=== PATIENT | female | born 1985 ===

== ENCOUNTER 2017-02-28 14:07 | Emergency (ER) | payer MEDICAID, OTHER ==
[2017-02-28 14:08] VITALS: BMI 31.0
[2017-02-28 14:50] VITALS: O2SAT 99
--- NOTE | 2017-02-28 15:09 | C.PDOC ---
History Of Present Illness 31 y.o female c/o myalgias, right ear and throat pain, subjective fever, decreased appetite and cough with yellowish sputum x 3 days. no recent travel. pt tried theraflu with no relief. both children sick as well. Time Seen by Provider: 02/28/17 14:33 Chief Complaint (Nursing): Flu-like Symptoms History Per: Patient History/Exam Limitations: no limitations Onset/Duration Of Symptoms: Days (3) Current Symptoms Are (Timing): Still Present Associated Symptoms: Fever, Cough, Sputum (yellow ) Ear Symptoms: Left: None, Right: Ear Pain Recent travel outside of the [place]: No Additional History Per: Patient Past Medical History Reviewed: Historical Data, Nursing Documentation, Vital Signs Vital Signs: Last Vital Signs Temp 98.0 F 02/28/17 17:40 Pulse 100 H 02/28/17 17:40 Resp 16 02/28/17 17:40 BP 111/73 02/28/17 17:40 Pulse Ox 99 03/01/17 18:46 - Medical History PMH: No Chronic Diseases Surgical History: Cholecystectomy Family History: States: Unknown Family Hx - Social History Hx Tobacco Use: Yes Hx Alcohol Use: Yes Hx Substance Use: No - Immunization History Hx Tetanus Toxoid Vaccination: Yes Hx Influenza Vaccination: No Hx Pneumococcal Vaccination: (unk) Review Of Systems Constitutional: Positive for: Fever, Chills, Other (decreased appetite ) ENT: Positive for: Ear Pain (right), Throat Pain Cardiovascular: Negative for: Chest Pain, Palpitations Respiratory: Positive for: Cough, Pleuritic Pain, Sputum (yellow ). Negative for: Shortness of Breath Gastrointestinal: Positive for: Diarrhea. Negative for: Vomiting, Abdominal Pain Skin: Negative for: Rash Neurological: Negative for: Weakness, Numbness Physical Exam - Physical Exam Appears: Non-toxic, Other (very uncomfortable ) Skin: Warm, Dry Head: Atraumatic, Normacephalic Eye(s): bilateral: Normal Inspection Ear(s): Left: Normal, Right: TM Erythema (bright red) Nose: No Discharge Oral Mucosa: Moist Throat: Erythema, No Exudate Neck: Normal ROM, Supple Lymphatic: Adenopathy (cervical right more than left) Chest: Symmetrical, No Deformity, No Tenderness Cardiovascular: Rhythm Regular, No Murmur, Other (tachycardia noted ) Respiratory: No Decreased Breath Sounds, No Rales, No Rhonchi, No Wheezing Gastrointestinal/Abdominal: Bowel Sounds, Soft, No Tenderness, No Guarding, No Rebound Extremity: Normal ROM, Capillary Refill (less than 2 seconds ) Neurological/Psych: Oriented x3, Normal Speech, Normal Cognition Gait: Steady ED Course And Treatment O2 Sat by Pulse Oximetry: 99 (on RA) Pulse Ox Interpretation: Normal Medical Decision Making Medical Decision Making: pt feeling better, will d/c with amox, pmd f/u, nsaids for pain and fever Disposition Counseled Patient/Family Regarding: Studies Performed, Diagnosis, Need For Followup, Rx Given, Smoking Cessation - Disposition Referrals: [facility] at [facility] [Outside] Disposition: HOME/ ROUTINE Disposition Time: 17:53 Condition: IMPROVED Additional Instructions: Take ibuprofen for pain or fever. Gargle with warm salty water several tinmes a day, drink tea with honey and lemon. FOllow up in medical clinic in a few days. Increased rest. Take antiboitics until finished. Prescriptions: Amoxicillin 500 mg PO TID #21 tablet Ibuprofen [Motrin] 600 mg PO TID #30 tab Instructions: Otitis Media (ED), Upper Respiratory Infection (ED) Forms: [facility] (Lao), General Discharge Instructions - Clinical Impression Clinical Impression: Influenza-like illness, Otitis media - PA / OVERCOIL STEPPER / Resident Statement MD/DO has reviewed & agrees with the documentation as recorded. - Scribe Statement The provider has reviewed the documentation as recorded by the Scribe (Adrianne Adams) All medical record entries made by the Scribe were at my direction and personally dictated by me. I have reviewed the chart and agree that the record accurately reflects my personal performance of the history, physical exam, medical decision making, and the department course for this patient. I have also personally directed, reviewed, and agree with the discharge instructions and disposition.
[2017-02-28 17:41] VITALS: BP 111/73; PULSE 100; RESP 16; TEMP 98
== END 2017-02-28 18:28 | disposition home or self-care (01) ==
LOC: C.ER 14:07
DX: J11.1 Influenza due to unidentified influenza virus with other respiratory manifestations (principal); H66.90 Otitis media, unspecified, unspecified ear; Z87.891 Personal history of nicotine dependence

== ENCOUNTER 2017-05-25 19:34 | Emergency (ER) | payer MEDICAID ==
[2017-05-25 19:35] VITALS: BMI 31.0
[2017-05-25 19:44] VITALS: RESP 20; TEMP 98.3
[2017-05-25] MEDS ORDERED: Lidocaine 5% Patch TD STA (20:12)
[2017-05-25] MEDS ORDERED: Lidocaine 5% Patch TD ONE (20:23)
[2017-05-25 20:48] LABS: SQUAMOUS EPITHIAL 7 /hpf (0-5); URINE BILIRUBIN NEGATIVE (NEGATIVE); URINE BLOOD NEGATIVE (NEGATIVE); URINE CLARITY Hazy (Clear); URINE COLOR Straw (YELLOW); URINE GLUCOSE (UA) NORMAL (Normal); URINE LEUKOCYTE ESTERASE NEG Leu/uL (Negative); URINE PROTEIN NEGATIVE (NEGATIVE); URINE UROBILINOGEN NORMAL mg/dL (0.2-1.0)
[2017-05-25 21:06] VITALS: BP 130/78; PULSE 83; O2SAT 100
--- NOTE | 2017-05-25 21:18 | C.PDOC ---
History Of Present Illness 31 year old female presents to the emergency department with complaints of low back pain since yesterday. Pain was initially dull and aching, then today it worsened while doing laundry. She feels when picking up a basket the pain became exacerbated, and started radiating down the right posterior thigh and knee. No numbness, weakness, or urinary symptoms. Patient took Tylenol without relief. Time Seen by Provider: 05/25/17 19:49 Chief Complaint (Nursing): Back Pain History Per: Patient History/Exam Limitations: no limitations Onset/Duration Of Symptoms: Days (x2) Current Symptoms Are (Timing): Still Present Associated Symptoms: None Past Medical History Reviewed: Historical Data, Nursing Documentation, Vital Signs Vital Signs: Last Vital Signs Temp 98.3 F 05/25/17 19:41 Pulse 83 05/25/17 21:05 Resp 20 05/25/17 21:05 BP 130/78 05/25/17 21:05 Pulse Ox 100 05/25/17 21:24 - Medical History PMH: No Chronic Diseases Surgical History: Cholecystectomy, Family History: States: Unknown Family Hx - Social History Hx Tobacco Use: Yes Hx Alcohol Use: Yes Hx Substance Use: No - Immunization History Hx Tetanus Toxoid Vaccination: Yes Hx Influenza Vaccination: No Hx Pneumococcal Vaccination: No (unk) Review Of Systems Except As Marked, All Systems Reviewed And Found Negative. Constitutional: Negative for: Fever, Chills Genitourinary: Negative for: Dysuria, Frequency, Incontinence Musculoskeletal: Positive for: Back Pain Neurological: Negative for: Weakness, Numbness Physical Exam - Physical Exam Appears: Other (Uncomfortable) Skin: Warm, Dry, No Rash Head: Atraumatic, Normacephalic Eye(s): bilateral: Normal Inspection Oral Mucosa: Moist Neck: Normal ROM Chest: Symmetrical Cardiovascular: Rhythm Regular, No Murmur Respiratory: Normal Breath Sounds, No Rales, No Rhonchi, No Wheezing Gastrointestinal/Abdominal: Soft, No Tenderness, No Guarding Back: Paraspinal Tenderness (to the right paralumbar region), No Other ( swelling or bulging) Extremity: Bilateral: Atraumatic, Normal Color And Temperature, Normal ROM Neurological/Psych: Oriented x3, Normal Speech, No Other (focal deficits) ED Course And Treatment O2 Sat by Pulse Oximetry: 100 (RA) Pulse Ox Interpretation: Normal Medical Decision Making Medical Decision Making: Impression: Low back pain, rule out UTI Time: 20:11 Plan: --Urine preg --Urinalysis --Tylenol 975 mg PO --Toradol 60 mg IM --Lidoderm patch --Valium 5 mg PO --Reassessment Urinalysis reviewed, and is negative. Patient remains afebrile, awake, and alert in the ED. On reevaluation, patient reports improvement of pain and feels comfortable being discharged home. Provided with prescriptions for Cyclobenzaprine and Motrin. Advised to follow up with primary doctor. Disposition Counseled Patient/Family Regarding: Studies Performed, Diagnosis, Need For Followup, Rx Given - Disposition Referrals: Cj Arriaga D[facility] [[facility]] - Disposition: HOME/ ROUTINE Disposition Time: 20:59 Condition: IMPROVED Additional Instructions: You can apply heat to area Take Tylenol 500mg for any pain Take Ibuprofen as needed for pain every 6-8 hours, with food to not upset stomach Take Flexeril every 8 hours as needed for muscular pain and spasm, caution may cause drowsiness Prescriptions: Cyclobenzaprine [Cyclobenzaprine HCl] 10 mg PO TID #21 tab Ibuprofen [Motrin] 1 tab PO TID PRN #30 tab PRN Reason: Pain Instructions: Low Back Pain (DC) Forms: [facility] (Kiswahili) - POA Present On Arrival: None - Clinical Impression Clinical Impression: Sciatica - PA / CERTIFIED MEDICAL ASST / Resident Statement MD/DO has reviewed & agrees with the documentation as recorded. - Scribe Statement The provider has reviewed the documentation as recorded by the Scribe (Suki Funes) All medical record entries made by the Scribe were at my direction and personally dictated by me. I have reviewed the chart and agree that the record accurately reflects my personal performance of the history, physical exam, medical decision making, and the department course for this patient. I have also personally directed, reviewed, and agree with the discharge instructions and disposition.
== END 2017-05-25 21:06 | disposition home or self-care (01) ==
LOC: C.ER 19:34
DX: M54.30 Sciatica, unspecified side (principal)
CPT/HCPCS: 81001; 96372; 99284; J1885

== ENCOUNTER 2017-08-01 17:35 | Emergency (ER) | payer MEDICAID ==
[2017-08-01 17:35] VITALS: BMI 31.0
--- NOTE | 2017-08-01 18:57 | C.PDOC ---
History Of Present Illness 31yo female, presents to ED for evaluation of abdominal discomfort after she ate 3 pieces of strawberry shortcake yesterday. She reports she has generalized abdominal pain described as a cramp like sensation, bloating and a tight feeling in her abdomen. She also reports feeling constipated and was only able to pass small amounts of stool earlier today; she denies passing gas today and denies any nausea, or vomiting. She also denies any urinary symptoms but reports when providing sample in ER she reports urinating a small amount and felt some hesitancy. Her LMP was 1 week ago and was normal. She has no other medical complaints. Time Seen by Provider: 08/01/17 18:19 Chief Complaint (Nursing): Abdominal Pain History Per: Patient History/Exam Limitations: no limitations Onset/Duration Of Symptoms: Hrs Current Symptoms Are (Timing): Still Present Location Of Pain/Discomfort: Diffuse Quality Of Discomfort: Cramping, "Pain" Associated Symptoms: Constipation. denies: Nausea, Vomiting, Diarrhea, Urinary Symptoms Additional History Per: Patient Abnormal Vaginal Bleeding: No Past Medical History Reviewed: Historical Data, Nursing Documentation, Vital Signs Vital Signs: Last Vital Signs Temp 98.5 F 08/01/17 20:58 Pulse 82 08/01/17 20:58 Resp 20 08/01/17 20:58 BP 125/76 08/01/17 20:58 Pulse Ox 98 08/01/17 20:58 - Medical History PMH: No Chronic Diseases Surgical History: Cholecystectomy, Family History: States: No Known Family Hx, Unknown Family Hx - Social History Hx Tobacco Use: Yes Hx Alcohol Use: Yes Hx Substance Use: No - Immunization History Hx Tetanus Toxoid Vaccination: Yes Hx Influenza Vaccination: No Hx Pneumococcal Vaccination: No (unk) Review Of Systems Except As Marked, All Systems Reviewed And Found Negative. Constitutional: Negative for: Fever, Chills Gastrointestinal: Positive for: Abdominal Pain (cramping discomfort), Constipation, Other (bloating) Genitourinary: Positive for: Other (hesitancy). Negative for: Dysuria, Frequency Physical Exam - Physical Exam Appears: Non-toxic, No Acute Distress Skin: Normal Color, Warm, Dry Head: Atraumatic, Normacephalic Eye(s): bilateral: Normal Inspection Oral Mucosa: Moist Neck: Normal ROM, Supple Chest: Symmetrical Cardiovascular: Rhythm Regular Respiratory: Normal Breath Sounds Gastrointestinal/Abdominal: Bowel Sounds (non tympanitic), Soft, Tenderness ( diffuse tenderness to right and left abdomen), No Mass, No Guarding, No Rebound Back: Normal Inspection Extremity: Normal ROM, No Pedal Edema Neurological/Psych: Oriented x3 ED Course And Treatment - Laboratory Results Result Diagrams: 08/01/17 18:55 08/01/17 18:55 Lab Interpretation: No Acute Changes O2 Sat by Pulse Oximetry: 100 (RA) Pulse Ox Interpretation: Normal - Other Rad obstructive series X-Ray: Interpreted by Me Interpretation: Normal bowel gas pattern. No evidence of constipation. Progress Note: 8:00 Patient continues to c/o diffuse abdominal pain despite IM Bentyl. CT abdomen and pelvis ordered. Reevaluation Time: 21:50 Reassessment Condition: Improved (Patient told RN that she feels better after Morphine and does not want to wait for CT to be done. She removed her IV and walked out before speaking to me.) Medical Decision Making Medical Decision Making: Plan: -- Labs -- Bentyl 20mg IM -- Urinalysis -- XR Obstructive series Progress: Disposition - Disposition Disposition: ELOPEMENT - ER ONLY Disposition Time: 21:50 Condition: IMPROVED - Clinical Impression Clinical Impression: Abdominal pain - Scribe Statement The provider has reviewed the documentation as recorded by the Scribe (Coty Ayers) Provider Attestation: All medical record entries made by the Scribe were at my direction and personally dictated by me. I have reviewed the chart and agree that the record accurately reflects my personal performance of the history, physical exam, medical decision making, and the department course for this patient. I have also personally directed, reviewed, and agree with the discharge instructions and disposition.
[2017-08-01 19:06] LABS: HCG,QUALITATIVE URINE NEGATIVE (NEGATIVE)
[2017-08-01 19:08] LABS: BASO % 0.3 % (0.0-2.0); EOS # 0.1 K/uL (0.0-0.7); EOS % 0.8 % (0.0-4.0); HEMOGLOBIN 13.2 g/dL (11.0-16.0); LYMPH # 1.3 K/uL (1.0-4.3); LYMPH % 12.4 % (20.0-40.0); MEAN CELL VOLUME 89.4 fL (81.0-99.0); MEAN CORPUSCULAR HEMOGLOBIN 30.4 pg (27.0-31.0); MONO # 0.7 K/uL (0.0-0.8); MONO % 6.9 % (0.0-10.0); NEUT # 8.6 K/uL (1.8-7.0); NEUT % 79.6 % (50.0-75.0); RBC 4.35 Mil/uL (3.80-5.20); RED CELL DISTRIBUTION WIDTH 13.5 % (11.5-14.5); WHITE BLOOD COUNT 10.8 K/uL (4.8-10.8)
[2017-08-01 19:12] LABS: SQUAMOUS EPITHIAL 5 /hpf (0-5); URINE AMORPHOUS SEDIMENT OCC /ul (<OCC); URINE BACTERIA OCC (<OCC); URINE BILIRUBIN NEGATIVE (NEGATIVE); URINE BLOOD NEGATIVE (NEGATIVE); URINE CLARITY Hazy (Clear); URINE COLOR Yellow (YELLOW); URINE GLUCOSE (UA) NORMAL (Normal); URINE LEUKOCYTE ESTERASE TRACE Leu/uL (Negative); URINE PROTEIN NEGATIVE (NEGATIVE); URINE UROBILINOGEN NORMAL mg/dL (0.2-1.0)
[2017-08-01 19:17] LABS: ALB/GLOB RATIO 1.2 (1.0-2.1); ALBUMIN 3.6 g/dL (3.5-5.0); ALT/SGPT 72 U/L (9-52); AST/SGOT 100 U/L (14-36); BLOOD UREA NITROGEN 4 mg/dL (7-17); CALCIUM 9.3 mg/dl (8.6-10.4); GFR AFRICAN-AMERICAN > 60; GFR NON-AFRICAN AMERICAN > 60; LIPASE 81 U/L (23-300)
[2017-08-01] MEDS ORDERED: Iohexol 240 (50 ml) PO ONE (20:04)
[2017-08-01] MEDS ORDERED: Iohexol 240 (50 ml) ONE (20:45)
[2017-08-01 20:59] VITALS: BP 125/76; PULSE 82; RESP 20; TEMP 98.5
[2017-08-01 22:05] VITALS: O2SAT 100
--- NOTE | 2017-08-02 08:43 | RAD ---
PROCEDURE: Radiographs of the chest and abdomen (obstructive series) HISTORY: abd pain COMPARISON: No prior. TECHNIQUE: AP radiograph of the chest, with upright and supine radiographs of the abdomen. FINDINGS: CHEST: Lungs: Clear. Cardiovascular: Normal size heart. No pulmonary vascular congestion. Pleura: No pleural fluid. No pneumothorax. Other findings: None. ABDOMEN AND PELVIS: Bowel: Left colonic stool retention. . No evidence of mechanical obstruction. No free air Free air: None. Bones: Iliac sided SI joint sclerosis. Bilateral hip arthrosis Other findings: Right upper quadrant surgical clips IMPRESSION: No infiltrate Left colonic stool retention No evidence of mechanical bowel obstruction. Arthrosis
== END 2017-08-01 21:50 | disposition left against medical advice (07) ==
LOC: C.ER 17:35
DX: R10.84 Generalized abdominal pain (principal); Z72.0 Tobacco use
CPT/HCPCS: 74022; 80053; 81001; 83690; 84703; 85025; 96372; 96374; 99284; J0500; J2270; Q9966

== ENCOUNTER 2018-03-11 16:18 | Emergency (ER) | payer MEDICAID ==
[2018-03-11 16:41] VITALS: BMI 32.7
[2018-03-11 16:43] VITALS: RESP 18; O2SAT 98
[2018-03-11 18:17] VITALS: BP 134/78; PULSE 76; TEMP 98.2
[2018-03-11] MEDS ORDERED: Albuterol-Ipratrop 3 mg / 0.5 (3 ml) UD IH STA (19:29)
[2018-03-11] MEDS ORDERED: Albuterol 0.083% Inhal Sol (2.5 mg/3 mL) UD INH STA (19:29)
[2018-03-11 19:41] LABS: BASO % 0.5 % (0.0-2.0); EOS # 0.3 K/uL (0.0-0.7); EOS % 4.8 % (0.0-4.0); HEMOGLOBIN 14.3 g/dL (11.0-16.0); LYMPH # 1.6 K/uL (1.0-4.3); LYMPH % 23.9 % (20.0-40.0); MEAN CELL VOLUME 87.6 fL (81.0-99.0); MEAN CORPUSCULAR HEMOGLOBIN 29.7 pg (27.0-31.0); MEAN CORPUSCULAR HGB CONC 33.9 g/dL (33.0-37.0); MEAN PLATELET VOLUME 7.5 fL (7.2-11.7); MONO # 0.6 K/uL (0.0-0.8); MONO % 9.7 % (0.0-10.0); NEUT % 61.1 % (50.0-75.0); NRBC % 0.2 % (0.0-2.0); RBC 4.82 Mil/uL (3.80-5.20); RED CELL DISTRIBUTION WIDTH 13.4 % (11.5-14.5); WHITE BLOOD COUNT 6.6 K/uL (4.8-10.8)
[2018-03-11] MEDS ORDERED: Albuterol 0.083% Inhal Sol (2.5 mg/3 mL) UD ONE ×2 (19:43→20:27)
[2018-03-11] MEDS ORDERED: Albuterol-Ipratrop 3 mg / 0.5 (3 ml) UD ONE (19:44)
[2018-03-11 20:01] LABS: ALB/GLOB RATIO 1.5 (1.0-2.1); ALBUMIN 4.3 g/dL (3.5-5.0); ALT/SGPT 28 U/L (9-52); AST/SGOT 21 U/L (14-36); BLOOD UREA NITROGEN 12 mg/dL (7-17); CALCIUM 9.3 mg/dl (8.6-10.4); GFR NON-AFRICAN AMERICAN > 60
--- NOTE | 2018-03-11 20:52 | C.PDOC ---
History Of Present Illness 32 year old female presents to the ED for evaluation of cough which has been intermittent for around 2 months. Patient states she has not been evaluated by a doctor for her symptoms. Patient notes that for the past two days, she has been feeling chest tightness and pain to her abdominal muscles from persistent coughing. Patient denies using control pills, fever, chills, vomiting. Patient reports social history of smoking. Time Seen by Provider: 03/11/18 17:17 Chief Complaint (Nursing): Cough, Cold, Congestion History Per: Patient History/Exam Limitations: no limitations Onset/Duration Of Symptoms: Other (two months ) Current Symptoms Are (Timing): Still Present Associated Symptoms: Cough. denies: Fever, Chills, Vomiting Additional History Per: Patient Past Medical History Reviewed: Historical Data, Nursing Documentation, Vital Signs Vital Signs: Last Vital Signs Temp 98.2 F 03/11/18 18:17 Pulse 76 03/11/18 18:17 Resp 18 03/11/18 18:17 BP 134/78 03/11/18 18:17 Pulse Ox 98 03/11/18 18:17 - Medical History PMH: No Chronic Diseases Surgical History: Cholecystectomy, Family History: States: Unknown Family Hx - Social History Hx Tobacco Use: Yes Hx Alcohol Use: Yes Hx Substance Use: No - Immunization History Hx Tetanus Toxoid Vaccination: Yes Hx Influenza Vaccination: No Hx Pneumococcal Vaccination: No (unk) Review Of Systems Constitutional: Negative for: Fever, Chills Cardiovascular: Positive for: Other (chest tightness ) Respiratory: Positive for: Cough Physical Exam - Physical Exam Appears: Non-toxic, No Acute Distress Skin: Normal Color, Warm, Dry Head: Atraumatic, Normacephalic Eye(s): bilateral: Normal Inspection Ear(s): Bilateral: Normal Nose: Normal, No Discharge Oral Mucosa: Moist Throat: Normal, No Erythema, No Exudate Neck: Supple Chest: Symmetrical, No Deformity, No Tenderness Cardiovascular: Rhythm Regular, No Murmur Respiratory: Wheezing, Other (speaking in full sentences) Extremity: Normal ROM, Capillary Refill (less than 2 seconds ) Neurological/Psych: Oriented x3, Normal Speech, Normal Cognition ED Course And Treatment - Laboratory Results Result Diagrams: 03/11/18 19:37 03/11/18 19:37 Lab Results: D-Dimer, Quantitative < 200 ng/mlDDU (0-243) 03/11/18 19:37 Total Bilirubin 0.7 mg/dL (0.2-1.3) 03/11/18 19:37 AST 21 U/L (14-36) 03/11/18 19:37 ALT 28 U/L (9-52) 03/11/18 19:37 Alkaline Phosphatase 55 U/L (38-126) 03/11/18 19:37 Total Protein 7.2 g/dL (6.3-8.3) 03/11/18 19:37 Albumin 4.3 g/dL (3.5-5.0) 03/11/18 19:37 Globulin 2.8 gm/dL (2.2-3.9) 03/11/18 19:37 Albumin/Globulin Ratio 1.5 (1.0-2.1) 03/11/18 19:37 O2 Sat by Pulse Oximetry: 98 (on RA) Pulse Ox Interpretation: Normal Progress Note: Bloodwork including d-dimer and CXR ordered considering patinets two month history of symptoms and social history of smoking. Albuterol INH and Solu-Medrol IVP given. On reassessment, patient is resting comfortably, showing no signs of distress and is stable for discharge. Pt is advised to follow up with her PMD within 1-2 days for further evaluation. When nurse came to discharge the patient, she is not in her room. Patient was called, she sts she had to leave and she removed her IV and put in the bathroom garbage can. Patient was informed that her medications were sent to preferred pharmacy where she can pick them up. Disposition - Disposition Disposition: HOME/ ROUTINE Disposition Time: 21:21 Condition: STABLE Additional Instructions: Follow up with PMD/Clinic within 1-2 days. Return to ED if feel worse. Prescriptions: predniSONE [predniSONE Tab] 2 tab PO DAILY #8 tab Albuterol Sulfate [Proair Hfa] 1 puff IH Q6 PRN #1 inh PRN Reason: Cough Azithromycin [Zithromax] 250 mg PO DAILY #6 tab Instructions: Acute Bronchitis, Adult (DC) Forms: [facility] (Z[place]an) - Clinical Impression Clinical Impression: Bronchitis - PA / PERIANESTHESIA NURSE / Resident Statement MD/DO has reviewed & agrees with the documentation as recorded. - Scribe Statement The provider has reviewed the documentation as recorded by the Scribe (Adrianne Adams) All medical record entries made by the Scribe were at my direction and personally dictated by me. I have reviewed the chart and agree that the record accurately reflects my personal performance of the history, physical exam, medical decision making, and the department course for this patient. I have also personally directed, reviewed, and agree with the discharge instructions and disposition.
--- NOTE | 2018-03-12 08:27 | RAD ---
Date of service: 03/11/2018 HISTORY: cough COMPARISON: No prior. TECHNIQUE: Chest PA and lateral FINDINGS: LUNGS: No active pulmonary disease. PLEURA: No significant pleural effusion identified. No pneumothorax apparent. CARDIOVASCULAR: No aortic atherosclerotic calcification present. Normal cardiac size. No pulmonary vascular congestion. OSSEOUS STRUCTURES: No significant abnormalities. VISUALIZED UPPER ABDOMEN: Normal. OTHER FINDINGS: None. IMPRESSION: No acute cardiopulmonary disease appreciated.
== END 2018-03-11 21:35 | disposition home or self-care (01) ==
LOC: C.ER 16:18
DX: J40 Bronchitis, not specified as acute or chronic (principal)
CPT/HCPCS: 71046; 80053; 81025; 85025; 85378; 94150; 96374; 99283; J2930

== ENCOUNTER 2018-06-28 17:48 | Emergency (ER) | payer MEDICAID | END 2018-06-28 19:42 | disposition home or self-care (01) | LOC: C.ER 17:48 ==